=== PATIENT | female | born 1950 | race Caucasian/White ===

== ENCOUNTER 2017-11-07 13:04 | Inpatient (IN) | payer MEDICARE, OTHER ==
[~2017-11-07] VITALS: Ht 165.1 cm; Wt 106.4 kg
[2017-11-07] VITALS (12 sets, daily range): BP systolic 92–158; BP diastolic 62–99; BMI 38.8
--- NOTE | ~2017-11-07 | EC ---
PATIENT:AKIN STEVENS DATE OF SERVICE: 11/07/17 SEX: F MEDICAL RECORD: [id number] DATE OF : 48 LOCATION:D.[facility] D.230 AGE OF PATIENT: 67 ADMISSION DATE: 11/07/17 REFERRING PHYSICIAN: INTERPRETING PHYSICIAN: ANGE CIAN MD ECHOCARDIOGRAM REPORT ECHO CHARGES 4 ECHO COMPLETE Date: 11/08/17 CLINICAL DIAGNOSIS: CHF ECHOCARDIOGRAPHIC MEASUREMENTS (adult normal given) AC root (d.<3.7cm) 3.4 cm LV Septum d (<1.2 cm> 1.4 cm Valve Excursion 1.4 cm LV Septum (systole) 1.4 cm Left Atria (s.<4.0cm> 3.8 cm LVPW d(<1.2cm) 0.9 cm RV (d.<2.3cm) 3.3 cm LVPW (sytole) 0.9 cm LV diastole(<5.6CM) 5.8 cm MV E-F(>70mm/sec) cm LV systole 5.5 cm LVOT Diameter 1.7 cm MV exc.(>10mm) cm Est.ejection fraction (50-75%) % DOPPLER: LVIT cm/sec A cm/sec E 132 cm/sec LA cm/sec RVSP 49.5 mmHg LVOT 97 cm/sec AOP1/2T m/s Asc. Ao 256 cm/sec RVOT 64 cm/sec RA cm/sec PA 74 cm/sec AV Gradient Peak 26.3 mmHg AV Mean 17.2 mmHg AV Area 0.5 cm MV Gradient Peak 20.7 mmHg MV Mean 9.4 mmHg MV Area cm COMMENTS: Logistics Service Representative: Rey GOMEZ [employer] Crib Attendant: Evan Awan TAPE# Pericardial Effusion N DATE OF SERVICE: 11/08/2017 ECHOCARDIOGRAM FINDINGS: 1. Left ventricular chamber size is dilated. Left ventricular systolic function is markedly reduced, overall ejection fraction in the 20% range. 2. Left atrium, right atrium, and right ventricle chamber sizes are severely dilated giving 4-chamber dilatation. 3. Valvular structures: Mitral valve is replaced with mechanical prosthesis. ECHOCARDIOGRAM REPORT [id number] AKIN STEVENS It has normal structure and function in this position. 4. Doppler interrogation reveals moderate mitral regurgitation, moderate tricuspid regurgitation, no other valvular insufficiency or stenosis. Pulmonary systolic pressure is elevated estimated at 50 mmHg. 5. No evidence of pericardial effusion or left ventricular thrombus. TRANSINT:[id number] Voice Confirmation ID: [id number] DOCUMENT ID: [id number] ANGE CAIN MD at 0923 CC: [id number] DICTATION DATE: 11/08/17 1219 DIRECTOR OF PUBLIC SAFETY: 11/08/17 1511 DIS IN 11/09/17 [place] [id number] [place] [id number]
--- NOTE | ~2017-11-07 | CN ---
PATIENT NAME:AKIN TELLO MEDICAL RECORD: [id number] : 48 LOCATION:[facility].2304 ADMIT DATE: 11/07/17 ACCOUNT: [id number] CONSULTING PHYSICIAN: ANGE CAIN MD REFERRING PHYSICIAN: JANICE JESUS MD DATE OF CONSULTATION: 11/08/2017 DIAGNOSES: 1. Congestive heart failure, chronic systolic dysfunction. 2. Cardiomyopathy, ejection fraction 20% to 25%. 3. Prosthetic mitral valve. 4. Coumadin anticoagulation. 5. Shock liver. 6. Sgavk-cl-udzojrj renal insufficiency. 7. Shortness of breath, pulmonary edema. 8. Atrial fibrillation, chronic. 9. Chronic obstructive pulmonary disease. 10. Chronic hypoxemic respiratory failure. 11. Morbid obesity. HISTORY OF PRESENT ILLNESS: Ms. Tello has past history of congestive heart failure. Her ejection fraction is in the 20% to 25% range. Past history of a prosthetic mitral valve with severe mitral regurgitation. This problem has been present since 2014. She presents to an outlying institution with worsening decompensated heart failure, shortness of breath, and pulmonary edema. Inability to anticoagulate secondary to tizpe-tj-lshoapr renal insufficiency, now transferred here. She is on amiodarone for rate control with the atrial fibrillation and is on dobutamine drip for inotropic support as well as diuresis. She is having poor time diuresing and not really making lot of progress. She is still very symptomatic from the shortness of breath. Her kidney function as well is having a little improvement with a creatinine in the 4.3 range. PHYSICAL EXAMINATION: GENERAL APPEARANCE: Well-nourished, well-developed, appears stated age. Level of distress, comfortable. PSYCHIATRIC: Mental status, alert, normal affect. Orientation, oriented to time, place and person. EYES: Lids and conjunctiva, noninjected. No discharge, no pallor. ENT: Lips, teeth, gums, normal dentition. Oropharynx, no cyanosis, no pallor. NECK: Carotid arteries, bilateral normal upstroke, no bruits, no thrills. JUGULAR VEINS: No jugular venous pressure or distention. CERVICAL LYMPH NODES: Nontender, nonenlarged. THYROID: Not enlarged. Nontender. No nodules. LUNGS: Respiratory effort, unlabored. PULMONARY: She has bibasilar crackles compatible with pulmonary edema. CARDIOVASCULAR: Prosthetic valve sounds are crisp and normal. EXTREMITIES: No cyanosis, no edema. Peripheral pulses, full and equal in all extremities, except as noted. No bruits appreciated. ABDOMEN: Soft, nondistended. Normal aorta. No bruit. Nontender. No masses. Liver, nontender, no hepatomegaly. Spleen, nontender, no splenomegaly. MUSCULOSKELETAL: No joint tenderness. No joint swelling. No erythema. NEUROLOGICAL: Normal gait, normal strength, normal tone. SKIN: Warm and dry. CONSULT REPORT [id number] AKIN TELLO OVERALL IMPRESSION: 1. Decompensated heart failure. At this time, there is little to offer as she is on dobutamine and IV Lasix. Has systolic blood pressures in the 90s, hence cannot add any other cardiac medications. 2. Atrial fibrillation. Her rate is overall controlled in the 90s on her current regimen. 3. Prosthetic mitral valve. She has severe mitral regurgitation. There is a mechanical issue. We can only fix with another valve replacement. She is not a candidate for this at this time. Overall from a cardiac standpoint, I agree with Dr. Wagoner that the prognosis is poor and hospice or comfort care measures should be considered at this time rather than aggressive treatment from a cardiac standpoint. TRANSINT:[id number] Voice Confirmation ID: [id number] DOCUMENT ID: [id number] ANGE CAIN MD at 0923 CC: [id number] DICTATION DATE: 11/08/17 1041 CENTRAL OFFICE TECHNICIAN: 11/08/17 1443 DIS IN 11/09/17 [place] [id number] [place] [id number]
[2017-11-07 14:49] LABS: BASOPHILS 0.1 % (0-2); EOSINOPHILS 0.1 % (0-7); HEMATOCRIT 32.7 % (36.0-48.0); HEMOGLOBIN 10.5 g/dL (12-16); IMMATURE GRANULOCYTES 0.2 % (0-5); MCH 29.7 pg (26.0-34.0); MCHC 32.1 g/dL (31.0-37.0); MCV 92.6 fL (80.0-100.0); MEAN PLATELET VOLUME 9.4 fL (7.4-10.4); MONOCYTES 3.3 % (2-11); NEUTROPHILS 91.3 % (40-80); PLATELET COUNT 110 10x3/uL (130-400); RBC 3.53 10x6/uL (4.00-5.40); RDW 17.5 % (11.5-14.5); WBC 15.2 10x3/uL (4.8-10.8)
[2017-11-07 14:59] LABS: APTT 41.8 SECONDS (22.8-39.4)
[2017-11-07 15:03] LABS: PROTIME 64.1 SECONDS (11.6-15.0)
[2017-11-07 15:04] LABS: INR 7.73 (0.85-1.17)
[2017-11-07 15:22] LABS: CKMB 11.9 U/L (0.0-3.6); CREATINE KINASE 324 UL (21-215)
[2017-11-07 15:28] LABS: TROPONIN-I 0.944 ng/mL (0.000-0.060)
[2017-11-07 16:11] LABS: ALBUMIN 3.7 g/dL (3.4-5.0); ANION GAP 15.3 mmol/L (8-16); BILIRUBIN - TOTAL 2.96 mg/dL (0.2-1.3); CALCIUM 9.4 mg/dL (8.5-10.1); CARBON DIOXIDE 29.1 mmol/L (21.0-32.0); CREATININE - SERUM 4.4 mg/dL (0.6-1.3); POTASSIUM - SERUM 4.4 mmol/L (3.5-5.1); PROTEIN - SERUM 6.4 g/dL (6.4-8.2)
[2017-11-07 18:23] LABS: % SATURATION 7 % (15-55); IRON 22 ug/dl (35-150); TOTAL IRON BIND CAPACITY 284 ug/dl (260-445); UNSAT IRON BIND CAPACITY 262 ug/dl (150-375)
[2017-11-07 18:36] LABS: T4 THYROXIN - FREE 1.83 ng/dL (0.76-1.46); THYROID STIMULATING HORMONE 5.23 uIU/mL (0.36-3.74); URIC ACID 17.4 mg/dL (2.6-7.2)
[2017-11-07] MEDS ORDERED: TRAZODONE HCL100 MG (21:04)
[2017-11-07] MEDS ORDERED: AMBIEN5 MG (21:16)
[2017-11-07 21:52] LABS: CKMB 10.2 U/L (0.0-3.6); CREATINE KINASE 300 UL (21-215)
[2017-11-07 21:53] LABS: TROPONIN-I 0.826 ng/mL (0.000-0.060)
[2017-11-07 23:46] LABS: APPEARANCE HAZY (CLEAR); COLOR YELLOW (YELLOW); NITRITE NEGATIVE (NEGATIVE); PROTEIN TRACE mg/dL (NEGATIVE); SPECIFIC GRAVITY 1.015 (1.005-1.020)
[2017-11-07 23:47] LABS: BACTERIA NONE SEEN /hpf (NONE SEEN); BILIRUBIN NEGATIVE (NEGATIVE); EPITHELIAL CELLS 0-5 /hpf (0-5); GLUCOSE NEGATIVE (NEGATIVE); HYALINE CAST OCC /lpf (NONE SEEN); KETONE NEGATIVE (NEGATIVE); UROBILINOGEN NORMAL (NORMAL)
[2017-11-08] VITALS (45 sets, daily range): BP systolic 86–142; BP diastolic 61–97; Ht 165.1 cm; Wt 106.4 kg
[2017-11-08 04:37] LABS: BASOPHILS 0 % (0-2); EOSINOPHILS 0.1 % (0-7); HEMATOCRIT 30.6 % (36.0-48.0); HEMOGLOBIN 9.8 g/dL (12-16); IMMATURE GRANULOCYTES 0.3 % (0-5); LYMPHOCYTES 3.7 % (15-50); MCH 29.4 pg (26.0-34.0); MCV 91.9 fL (80.0-100.0); MEAN PLATELET VOLUME 10.2 fL (7.4-10.4); MONOCYTES 6.1 % (2-11); NEUTROPHILS 89.8 % (40-80); PLATELET COUNT 108 10x3/uL (130-400); RBC 3.33 10x6/uL (4.00-5.40); RDW 17.2 % (11.5-14.5)
[2017-11-08 04:53] LABS: INR 4.61 (0.85-1.17); PROTIME 42.6 SECONDS (11.6-15.0); WBC 11.3 10x3/uL (4.8-10.8)
[2017-11-08 05:10] LABS: ALBUMIN 3.6 g/dL (3.4-5.0); ALKALINE PHOSPHATASE 87 U/L (46-116); BILIRUBIN - TOTAL 2.56 mg/dL (0.2-1.3); CALC OSMOLALITY 298 mosm/kg (275-300); CALCIUM 9.3 mg/dL (8.5-10.1); CARBON DIOXIDE 30.6 mmol/L (21.0-32.0); CHLORIDE - SERUM 94 mmol/L (98-107); CKMB 8.2 U/L (0.0-3.6); CREATINE KINASE 275 UL (21-215); CREATININE - SERUM 4.3 mg/dL (0.6-1.3); GLUCOSE 94 mg/dL (74-106); POTASSIUM - SERUM 4.1 mmol/L (3.5-5.1); PROTEIN - SERUM 6.5 g/dL (6.4-8.2); SODIUM 135 mmol/L (136-145); UREA NITROGEN 94 mg/dL (7-18); eGFR NON AFRICAN AMERICAN 11 mL/min (90-120)
[2017-11-08 05:14] LABS: ALT (SGPT) 1681 U/L (10-68); TROPONIN-I 0.644 ng/mL (0.000-0.060)
[2017-11-09] VITALS (13 sets, daily range): BP systolic 109–144; BP diastolic 61–100
[2017-11-09 04:42] LABS: INR 3.11 (0.85-1.17); PROTIME 31.3 SECONDS (11.6-15.0)
[2017-11-09 04:50] LABS: BASOPHILS 0 % (0-2); EOSINOPHILS 0.1 % (0-7); HEMATOCRIT 32.2 % (36.0-48.0); HEMOGLOBIN 10.4 g/dL (12-16); IMMATURE GRANULOCYTES 0.1 % (0-5); MCH 29.4 pg (26.0-34.0); MCHC 32.3 g/dL (31.0-37.0); MEAN PLATELET VOLUME 10.3 fL (7.4-10.4); NEUTROPHILS 89.8 % (40-80); PLATELET COUNT 89 10x3/uL (130-400); RBC 3.54 10x6/uL (4.00-5.40); RDW 17.1 % (11.5-14.5); WBC 9.3 10x3/uL (4.8-10.8)
[2017-11-09 04:57] LABS: ALBUMIN 3.5 g/dL (3.4-5.0); ANION GAP 13.6 mmol/L (8-16); BILIRUBIN - TOTAL 3.07 mg/dL (0.2-1.3); CALCIUM 9.1 mg/dL (8.5-10.1); CARBON DIOXIDE 31.3 mmol/L (21.0-32.0); POTASSIUM - SERUM 3.9 mmol/L (3.5-5.1); PROTEIN - SERUM 6.4 g/dL (6.4-8.2)
[2017-11-09 08:18] LABS: FOLATE (FOLIC ACID) - SERUM 17.8 ng/mL (>3.0)
[2017-11-09] MEDS ORDERED: FUROSEMIDE20 MG PO (10:56)
[2017-11-09] MEDS ORDERED: K-TAB10 MEQ PO (10:56)
[2017-11-10 12:21] LABS: HEPATITIS C ANTIBODY <0.1 (0.0-0.9)
== END 2017-11-09 14:41 | disposition hospice, inpatient (51) | DRG 306 ==
LOC: D.ICU 13:04
PROVIDERS: Internal Medicine Nephrology
DX: T82.09XA Other mechanical complication of heart valve prosthesis, initial encounter (principal); I50.23 Acute on chronic systolic (congestive) heart failure; J96.21 Acute and chronic respiratory failure with hypoxia; N17.0 Acute kidney failure with tubular necrosis; K72.00 Acute and subacute hepatic failure without coma; I13.0 Hypertensive heart and chronic kidney disease with heart failure and stage 1 through stage 4 chronic kidney disease, or unspecified chronic kidney disease; J81.1 Chronic pulmonary edema; I42.9 Cardiomyopathy, unspecified; I24.8 Other forms of acute ischemic heart disease; T82.03XA Leakage of heart valve prosthesis, initial encounter; N18.9 Chronic kidney disease, unspecified; Z87.891 Personal history of nicotine dependence; I48.2 Chronic atrial fibrillation; E66.01 Morbid (severe) obesity due to excess calories; Z68.38 Body mass index [BMI] 38.0-38.9, adult; J44.9 Chronic obstructive pulmonary disease, unspecified; I27.20 Pulmonary hypertension, unspecified; Z95.2 Presence of prosthetic heart valve; I07.1 Rheumatic tricuspid insufficiency; D64.9 Anemia, unspecified; E79.0 Hyperuricemia without signs of inflammatory arthritis and tophaceous disease